=== PATIENT | female | born 1960 | race African-American/Black ===

== ENCOUNTER → 2018-01-09 | Outpatient (CLI) | payer MEDICARE, OTHER ==
[~2018-01-09] VITALS: Ht 167.6 cm; Wt 103.0 kg
[~2018-01-09] MED LIST: B COMPLEX #11 TA1 PO; CALTRATE-600 W600 MG PO; COENZYME Q-1050 MG PO; COZAAR 50MG50 MG/TAB PO; FERREX 150150 MG PO; FLEXERIL 1010 MG/TAB PO; HYDRODIURIL50 MG PO; MICARDIS 40MG40 MG PO; MICARDIS HCT PO; MOBIC15 MG PO; MVI; NEXIUM40 MG PO; NORVASC 5MG5 MG/TAB PO; PEPCID 20MG TAB20 MG PO; PREVACID 30MG30 M1 PO; TYLENOL 8 HR PO; VITAMIN C500 MG PO; ZOLOFT 100MG100 MG PO
[2018-01-09 08:14] VITALS: BP 130/86; PULSE 60
== END ==
LOC: LIGHT
DX: E88.81 Metabolic syndrome and other insulin resistance (principal); F32.9 Major depressive disorder, single episode, unspecified; E66.01 Morbid (severe) obesity due to excess calories; Z68.36 Body mass index [BMI] 36.0-36.9, adult; Z71.3 Dietary counseling and surveillance
CPT/HCPCS: G0463

== ENCOUNTER → 2018-01-28 | Outpatient (CLI) | payer MEDICARE, OTHER | LOC: LIGHT 10:24 | DX: E88.81 Metabolic syndrome and other insulin resistance (principal); F32.9 Major depressive disorder, single episode, unspecified; E66.9 Obesity, unspecified; Z68.36 Body mass index [BMI] 36.0-36.9, adult; Z71.3 Dietary counseling and surveillance ==

== ENCOUNTER → 2018-02-13 | Outpatient (CLI) | payer MEDICARE, OTHER ==
[~2018-02-13] VITALS: Ht 167.6 cm; Wt 103.4 kg
[~2018-02-13] MED LIST changes: +PHENTERMINE15 MG PO
[2018-02-13 10:57] VITALS: BP 126/92; PULSE 76
== END ==
LOC: LIGHT 07:52
DX: E88.81 Metabolic syndrome and other insulin resistance (principal); F32.9 Major depressive disorder, single episode, unspecified; E66.9 Obesity, unspecified; Z68.36 Body mass index [BMI] 36.0-36.9, adult; Z71.3 Dietary counseling and surveillance
CPT/HCPCS: G0463

== ENCOUNTER → 2023-03-13 | Outpatient (CLI) | payer MEDICARE | LOC: MC.RAD 10:44 | DX: Z12.31 Encounter for screening mammogram for malignant neoplasm of breast (principal) ==

== ENCOUNTER → 2023-07-09 | Outpatient (CLI) | payer MEDICARE, OTHER | LOC: COL.RAD 09:48 | DX: M17.0 Bilateral primary osteoarthritis of knee (principal) ==